=== PATIENT | female | born 1945 | race Caucasian/White ===

== ENCOUNTER 2017-10-31 23:45 | Emergency (ER) | payer MEDICARE, OTHER ==
[~2017-10-31] VITALS: Ht 152.4 cm; Wt 61.9 kg
[~2017-10-31 23:45] MED LIST: ADVAI100I PO; ARTH650T6 PO; COZA50TA PO; EPIP0.3I IM; FEXO180 PO; JINT1TAB PO; MUCI600T PO; NEXI40CA PO; OXAP600 PO; PRED50TA PO; RANI150 PO; SERT25TA83 PO; VAGI10TA VA
[2017-10-31] MEDS ORDERED: IOHEXOL 350 MG/ML 10 ML VIAL (for RAD DIAG) IVCONTRAST ONE (23:46)
[2017-10-31 23:58] VITALS: BP 165/89; PULSE 75; RESP 16; TEMP 97.7; O2SAT 100
[2017-11-01] VITALS (8 sets, daily range): BP systolic 168–208; BP diastolic 69–107; PULSE 66–99; RESP 18; O2SAT 98–99
--- NOTE | 2017-11-01 00:11 | PD ---
HPI Chief Complaint: GI Complaint Time Seen by Provider: 00:11 Travel History International Travel<30 days: No Contact w/Intl Traveler<30days: No Traveled to known affect area: No History of Present Illness HPI 71-year-old female came to the emergency room with history of nausea, vomiting and upper abdominal discomfort since 8:30 PM. Patient says that she had her lower right premolar pulled this morning and was discharged home on tramadol. She took 2 doses of tramadol which she has taken for the first time. After that the vomiting started. She says she must have vomited 6 times which have been nonbloody and nonbilious. She continues to be nauseous and says the nausea comes in waves. She was feeling fine prior to starting the medications. No history of diarrhea. No known sick contacts. Vital signs were stable. The epigastric pain radiates to the left and the right upper quadrant. No aggravating or relieving factors identified. PFSH Past Medical History Narrative Medical List of her past medical, surgical, social and family history is reviewed from the nursing note. Asthma: Yes Depression: Yes Cardiovascular Problems: Yes (Mitral Regurg) GERD: Yes Hypertension: Yes ?: Not Social History Alcohol Use: No Tobacco Use: No Substance Use: No Allergies-Medications (Allergen,Severity, Reaction): Coded Allergies: bee venom protein (honey bee) (Verified Allergy, Intermediate, LOCALIZED SWELLING, 10/31/17) codeine (Verified Adverse Reaction, Intermediate, N/V, 10/31/17) Comments List of her allergies reviewed from the nursing note. Reported Meds & Prescriptions Reported Meds & Active Scripts Active Reported Nasonex Nasal [place] (Mometasone Furoate) 50 Mcg/Act Naspr 2 [place] EACH NARE DAILY PRN Sertraline (Sertraline HCl) 25 Mg Tab 25 Mg PO DAILY Nexium (Esomeprazole DR) 40 Mg Capdr 40 Mg PO Cozaar (Losartan Potassium) 50 Mg Tab 50 Mg PO DAILY Advair Diskus Inh (Fluticasone-Salmeterol Inh) 100-50 Mcg/Blist Aer 1 Puff INH BID PRN Rinse mouth after use. Daypro (Oxaprozin) 600 Mg Tab 600 Mg PO SA-MARTELL Mucinex DM (Dextromethorphan-Guaifenesin) 30-600 Mg Tab 1 Tab PO BID PRN Jinteli 1/5 (Norethindrone-Ethinyl Estradiol) 1-5 Mg-Mcg Tab 1 Tab PO -- Narrative Medication List of her home medications reviewed from the nursing note. Review of Systems Except as stated in HPI: all other systems reviewed are Neg Gastrointestinal: Positive: Nausea, Vomiting, Abdominal Pain Physical Exam Narrative GENERAL: Awake, alert, moderate to SKIN: Focused skin assessment warm/dry. HEAD: Atraumatic. Normocephalic. EYES: Pupils equal and round. No scleral icterus. No injection or drainage. ENT: No nasal bleeding or discharge. Mucous membranes pink and moist. NECK: Trachea midline. No JVD. CARDIOVASCULAR: Regular rate and rhythm. No murmur appreciated. RESPIRATORY: No accessory muscle use. Clear to auscultation. Breath sounds equal bilaterally. GASTROINTESTINAL: Abdomen soft, tenderness in the epigastric region on palpation , nondistended. Hepatic and splenic margins not palpable. MUSCULOSKELETAL: No obvious deformities. No clubbing. No cyanosis. No edema. NEUROLOGICAL: Awake and alert. No obvious cranial nerve deficits. Motor grossly within normal limits. Normal speech. PSYCHIATRIC: Appropriate mood and affect; insight and judgment normal. Data Data Last Documented VS Vital Signs Date Time Temp Pulse Resp B/P (MAP) Pulse Ox O2 Delivery O2 Flow Rate FiO2 10/31/17 23:58 97.7 75 16 165/89 (114) 100 Orders Orders Complete Blood Count With Diff (11/01/17 00:14) Comprehensive Metabolic Panel (11/01/17 00:14) Lipase (11/01/17 00:14) Iv Access Insert/Monitor (11/01/17 00:14) Ecg Monitoring (11/01/17 00:14) Oximetry (11/01/17 00:14) Sodium Chlor 0.9% 1000 Ml Inj (Ns 1000 M (11/01/17 00:14) Sodium Chloride 0.9% Flush (Ns Flush) (11/01/17 00:15) Electrocardiogram (11/01/17 00:14) Metoclopramide Inj (Reglan Inj) (11/01/17 00:15) Pantoprazole Inj (Protonix Inj) (11/01/17 00:15) Labs Laboratory Tests Test 11/01/17 00:35 White Blood Count 8.3 TH/MM3 Red Blood Count 4.25 MIL/MM3 Hemoglobin 13.4 GM/DL Hematocrit 40.6 % Mean Corpuscular Volume 95.5 FL Mean Corpuscular Hemoglobin 31.6 PG Mean Corpuscular Hemoglobin Concent 33.1 % Red Cell Distribution Width 12.2 % Platelet Count 369 TH/MM3 Mean Platelet Volume 7.3 FL Neutrophils (%) (Auto) 80.3 % Lymphocytes (%) (Auto) 13.5 % Monocytes (%) (Auto) 5.0 % Eosinophils (%) (Auto) 0.9 % Basophils (%) (Auto) 0.3 % Neutrophils # (Auto) 6.7 TH/MM3 Lymphocytes # (Auto) 1.1 TH/MM3 Monocytes # (Auto) 0.4 TH/MM3 Eosinophils # (Auto) 0.1 TH/MM3 Basophils # (Auto) 0.0 TH/MM3 CBC Comment DIFF FINAL Differential Comment MDM Medical Decision Making Medical Screen Exam Complete: Yes Emergency Medical Condition: Yes Medical Record Reviewed: Yes Interpretation(s) Twelve-lead EKG was reviewed by me. Normal sinus rhythm, normal axis, nonspecific ST-T wave changes. Heart rate of 69 bpm. Differential Diagnosis Acute gastritis, acute pancreatitis, ACS Narrative Course 12:21 AM awaiting for blood test results. I have ordered for IV Reglan, IV Protonix and IV fluid bolus. 12:55 AM awaiting for the blood test result. Case has been signed over to the next ER physician. Procedures EKG Prior to Arrival: Delicia Spring MD November 01, 2017 00:11
[2017-11-01] MEDS ORDERED: SODIUM CHLOR 0.9% 1000 ML INJ 1,000 ML IV SCH (00:14)
[2017-11-01] MEDS ORDERED: METOCLOPRAMIDE HCL 10 MG/2 ML VIAL IV PUSH ONE (00:15)
[2017-11-01] MEDS ORDERED: SODIUM CHLORIDE 0.9% FLUSH 10 ML FLUSH IV FLUSH PRN (00:15)
[2017-11-01] MEDS ORDERED: PANTOPRAZOLE SODIUM 40 MG VIAL IV PUSH ONE (00:15)
[2017-11-01] MEDS ORDERED: MOME17I EACH NARE (00:28)
[2017-11-01] MEDS ORDERED: DAYP600T PO (00:28)
[2017-11-01] MEDS ORDERED: SERT25TA83 PO (00:28)
[2017-11-01] MEDS ORDERED: HUMIBIDDM PO (00:28)
[2017-11-01] MEDS ORDERED: COZA50TA PO (00:28)
[2017-11-01] MEDS ORDERED: NEXI40CA PO (00:28)
[2017-11-01] MEDS ORDERED: ADVA100A INH (00:28)
[2017-11-01] MEDS ORDERED: JINT1TAB PO (00:28)
[2017-11-01 00:54] LABS: AUTOMATED NEUTROPHIL # 6.7 TH/MM3 (1.8-7.7); BASOPHIL % 0.3 % (0.0-2.0); EOSINOPHIL # 0.1 TH/MM3 (0-0.4); EOSINOPHIL % 0.9 % (0.0-4.0); HEMATOCRIT 40.6 % (35.0-46.0); HEMOGLOBIN 13.4 GM/DL (11.6-15.3); LYMPH % 13.5 % (9.0-44.0); LYMPHOCYTE # 1.1 TH/MM3 (1.0-4.8); MEAN CELL VOLUME 95.5 FL (80.0-100.0); MEAN CORPUSCULAR HEMOGLOBIN 31.6 PG (27.0-34.0); MEAN CORPUSCULAR HGB CONC 33.1 % (32.0-36.0); MEAN PLATELET VOLUME 7.3 FL (7.0-11.0); MONOCYTE # 0.4 TH/MM3 (0-0.9); NEUT % 80.3 % (16.0-70.0); PLATELET COUNT 369 TH/MM3 (150-450); RED BLOOD COUNT 4.25 MIL/MM3 (4.00-5.30); RED CELL DISTRIBUTION WIDTH 12.2 % (11.6-17.2); WHITE BLOOD COUNT 8.3 TH/MM3 (4.0-11.0)
[2017-11-01 01:03] LABS: CHLORIDE 97 MEQ/L (98-107); SODIUM (NA) 132 MEQ/L (136-145)
[2017-11-01 01:06] LABS: CALCIUM 9.6 MG/DL (8.5-10.1)
[2017-11-01 01:07] LABS: ALBUMIN 4.5 GM/DL (3.4-5.0); BICARBONATE 28.1 MEQ/L (21.0-32.0); BLOOD UREA NITROGEN 12 MG/DL (7-18); GLUCOSE,RANDOM 124 MG/DL (74-106)
[2017-11-01 01:09] LABS: ALT (GPT) 28 U/L (10-53); AST (GOT) 15 U/L (15-37)
[2017-11-01 01:10] LABS: CREATININE 0.67 MG/DL (0.50-1.00); GLOMERULAR FILTRATION RATE 87 ML/MIN (>89)
[2017-11-01 01:11] LABS: TOTAL PROTEIN 8.1 GM/DL (6.4-8.2)
[2017-11-01 01:12] LABS: ALKALINE PHOSPHATASE 75 U/L (45-117)
[2017-11-01] MEDS ORDERED: VAGI10TA VAGINAL (01:16)
[2017-11-01] MEDS ORDERED: MULT-177 PO (01:16)
[2017-11-01] MEDS ORDERED: FEXO15TA PO (01:16)
[2017-11-01] MEDS ORDERED: EXCEDRIN PM PO (01:16)
[2017-11-01] MEDS ORDERED: ESSENTIAL ENZYMES PO (01:16)
--- NOTE | 2017-11-01 01:48 | PD ---
Physical Exam Date Seen by Provider: November 01, 2017 Data Data Last Documented VS Vital Signs Date Time Temp Pulse Resp B/P (MAP) Pulse Ox O2 Delivery O2 Flow Rate FiO2 11/01/17 01:25 66 18 200/76 (117) 98 Room Air 10/31/17 23:58 97.7 Orders Orders Complete Blood Count With Diff (11/01/17 00:14) Comprehensive Metabolic Panel (11/01/17 00:14) Lipase (11/01/17 00:14) Iv Access Insert/Monitor (11/01/17 00:14) Ecg Monitoring (11/01/17 00:14) Oximetry (11/01/17 00:14) Sodium Chlor 0.9% 1000 Ml Inj (Ns 1000 M (11/01/17 00:14) Sodium Chloride 0.9% Flush (Ns Flush) (11/01/17 00:15) Electrocardiogram (11/01/17 00:14) Metoclopramide Inj (Reglan Inj) (11/01/17 00:15) Pantoprazole Inj (Protonix Inj) (11/01/17 00:15) Ed Discharge Order (11/01/17 01:53) Labs Laboratory Tests Test 11/01/17 00:35 White Blood Count 8.3 TH/MM3 Red Blood Count 4.25 MIL/MM3 Hemoglobin 13.4 GM/DL Hematocrit 40.6 % Mean Corpuscular Volume 95.5 FL Mean Corpuscular Hemoglobin 31.6 PG Mean Corpuscular Hemoglobin Concent 33.1 % Red Cell Distribution Width 12.2 % Platelet Count 369 TH/MM3 Mean Platelet Volume 7.3 FL Neutrophils (%) (Auto) 80.3 % Lymphocytes (%) (Auto) 13.5 % Monocytes (%) (Auto) 5.0 % Eosinophils (%) (Auto) 0.9 % Basophils (%) (Auto) 0.3 % Neutrophils # (Auto) 6.7 TH/MM3 Lymphocytes # (Auto) 1.1 TH/MM3 Monocytes # (Auto) 0.4 TH/MM3 Eosinophils # (Auto) 0.1 TH/MM3 Basophils # (Auto) 0.0 TH/MM3 CBC Comment DIFF FINAL Differential Comment Blood Urea Nitrogen 12 MG/DL Creatinine 0.67 MG/DL Random Glucose 124 MG/DL Total Protein 8.1 GM/DL Albumin 4.5 GM/DL Calcium Level 9.6 MG/DL Alkaline Phosphatase 75 U/L Aspartate Amino Transf (AST/SGOT) 15 U/L Alanine Aminotransferase (ALT/SGPT) 28 U/L Total Bilirubin 1.0 MG/DL Sodium Level 132 MEQ/L Potassium Level 3.7 MEQ/L Chloride Level 97 MEQ/L Carbon Dioxide Level 28.1 MEQ/L Anion Gap 7 MEQ/L Estimat Glomerular Filtration Rate 87 ML/MIN Lipase 427 U/L MDM Medical Record Reviewed: Yes Supervised Visit with ENDY: No Interpretation(s) Vital Signs Date Time Temp Pulse Resp B/P (MAP) Pulse Ox O2 Delivery O2 Flow Rate FiO2 11/01/17 01:25 66 18 200/76 (117) 98 Room Air 11/01/17 00:55 68 18 204/71 (115) 99 Room Air 11/01/17 00:35 18 99 Room Air 10/31/17 23:58 97.7 75 16 165/89 (114) 100 Laboratory Tests Test 11/01/17 00:35 White Blood Count 8.3 TH/MM3 (4.0-11.0) Red Blood Count 4.25 MIL/MM3 (4.00-5.30) Hemoglobin 13.4 GM/DL (11.6-15.3) Hematocrit 40.6 % (35.0-46.0) Mean Corpuscular Volume 95.5 FL (80.0-100.0) Mean Corpuscular Hemoglobin 31.6 PG (27.0-34.0) Mean Corpuscular Hemoglobin Concent 33.1 % (32.0-36.0) Red Cell Distribution Width 12.2 % (11.6-17.2) Platelet Count 369 TH/MM3 (150-450) Mean Platelet Volume 7.3 FL (7.0-11.0) Neutrophils (%) (Auto) 80.3 % (16.0-70.0) Lymphocytes (%) (Auto) 13.5 % (9.0-44.0) Monocytes (%) (Auto) 5.0 % (0.0-8.0) Eosinophils (%) (Auto) 0.9 % (0.0-4.0) Basophils (%) (Auto) 0.3 % (0.0-2.0) Neutrophils # (Auto) 6.7 TH/MM3 (1.8-7.7) Lymphocytes # (Auto) 1.1 TH/MM3 (1.0-4.8) Monocytes # (Auto) 0.4 TH/MM3 (0-0.9) Eosinophils # (Auto) 0.1 TH/MM3 (0-0.4) Basophils # (Auto) 0.0 TH/MM3 (0-0.2) CBC Comment DIFF FINAL Differential Comment Blood Urea Nitrogen 12 MG/DL (7-18) Creatinine 0.67 MG/DL (0.50-1.00) Random Glucose 124 MG/DL (74-106) Total Protein 8.1 GM/DL (6.4-8.2) Albumin 4.5 GM/DL (3.4-5.0) Calcium Level 9.6 MG/DL (8.5-10.1) Alkaline Phosphatase 75 U/L (45-117) Aspartate Amino Transf (AST/SGOT) 15 U/L (15-37) Alanine Aminotransferase (ALT/SGPT) 28 U/L (10-53) Total Bilirubin 1.0 MG/DL (0.2-1.0) Sodium Level 132 MEQ/L (136-145) Potassium Level 3.7 MEQ/L (3.5-5.1) Chloride Level 97 MEQ/L (98-107) Carbon Dioxide Level 28.1 MEQ/L (21.0-32.0) Anion Gap 7 MEQ/L (5-15) Estimat Glomerular Filtration Rate 87 ML/MIN (>89) Lipase 427 U/L (73-393) Differential Diagnosis Medication reaction, gastritis, gastroenteritis, pancreatitis, cholecystitis Narrative Course Patient is a 71-year-old female who presents the emergency room with complaints of nausea, vomiting and upper abdominal pain which began around 8:30 PM tonight after taking 2 doses of tramadol. Patient reports that she had some teeth pulled this morning and was discharged home with tramadol for pain. Patient has never had tramadol in the past, reports that after she took this medication , she began to feel nauseous and vomited multiple times. Patient reports that prior to taking the medication, she felt fine. Patient with no fever or chills , patient with no other complaints at this time. Patient received IV fluids as well as IV Zofran as well as IV Protonix while in the emergency room. Lab work was ordered. CBC & BMP Diagram 11/01/17 00:35 Total Protein 8.1, Albumin 4.5, Calcium Level 9.6, Alkaline Phosphatase 75, Aspartate Amino Transf (AST/SGOT) 15, Alanine Aminotransferase (ALT/SGPT) 28, Total Bilirubin 1.0 Lab work reviewed, patient with a lipase of 427, patient was reevaluated and has resolution of pain. Abdomen is currently soft, nontender, nondistended, no peritoneal signs, patient with no history of pancreatitis in the past. Patient is aware of the elevated lipase, she will have this monitored further by her primary care doctor. Signs and symptoms of when to return to the emergency room was reviewed patient. Patient was able to tolerate a cup of water prior to discharge, patient reports that she is feeling better and requests to be discharged home. Patient will return to the emergency room as needed, she was instructed to stop taking tramadol. Diagnosis Primary Impression: Medication reaction Qualified Codes: T88.7XXA - Unspecified adverse effect of drug or medicament, initial encounter Additional Impressions: Nausea & vomiting Qualified Codes: R11.2 - Nausea with vomiting, unspecified Elevated lipase Patient Instructions: General Instructions Additional Instruction: Please provide patient with a copy of their lab work and studies at discharge* * Please follow up with your primary care doctor in 2-3 days Return to the ER if symptoms worsen or progress Return to the ER as needed Please stop taking tramadol Disposition: 01 DISCHARGE HOME Condition: Stable Catrina Rice DO November 01, 2017 01:48
[2017-11-01] MEDS ORDERED: ZOFR4TAB PO (02:12)
[2017-11-01] MEDS ORDERED: LOSARTAN 50 MG TAB PO ONE (02:15)
[2017-11-01] MEDS ORDERED: ONDANSETRON ODT 4 MG TAB PO ONE (02:15)
[2017-11-01] MEDS ORDERED: KETOROLAC TROMETHAMINE 30 MG/ML (IVP) VIAL IV PUSH ONE (03:15)
--- NOTE | 2017-11-01 03:51 | RADRPT ---
EXAM DATE/TIME: 11/01/2017 02:46 [facility] COMPARISON: No previous studies available for comparison. INDICATIONS : Patient complains of upper abdomen pain with nausea and vomiting. IV CONTRAST: 95 cc Omnipaque 350 (iohexol) IV ORAL CONTRAST: No oral contrast ingested. RADIATION DOSE: 6.78 CTDIvol (mGy) MEDICAL HISTORY : Cardiovascular disease. Hypertension. SURGICAL HISTORY : None. ENCOUNTER: Initial ACUITY: 1 day PAIN SCALE: 3/10 LOCATION: upper quadrant abdomen TECHNIQUE: Volumetric scanning of the abdomen and pelvis was performed. Using automated exposure control and ad justment of the mA and/or kV according to patient size, radiation dose was kept as low as reasonably achievable to obtain optimal diagnostic quality images. DICOM format image data is available electro nically for review and comparison. FINDINGS: LOWER LUNGS: The visualized lower lungs are clear. LIVER: Homogeneous density without lesion. There is no dilation of the biliary tree. No calcified gallston es. SPLEEN: Normal size without lesion. PANCREAS: Within normal limits. KIDNEYS: Normal in size and shape. There is no mass, stone or hydronephrosis. ADRENAL GLANDS: Within normal limits. VASCULAR: There is no aortic aneurysm. BOWEL/MESENTERY: The stomach, small bowel, and colon demonstrate no acute abnormality. There is no free intraperitone al air or fluid. ABDOMINAL WALL: Within normal limits. RETROPERITONEUM: There is no lymphadenopathy. BLADDER: No wall thickening or mass. REPRODUCTIVE: Within normal limits. INGUINAL: There is no lymphadenopathy or hernia. MUSCULOSKELETAL: Within normal limits for patient age. CONCLUSION: No acute disease. Jin Ruby Jr., MD on November 01, 2017 at 3:48 Board Certified Radiologist. This report was verified electronically.
--- NOTE | 2017-11-01 12:18 | EKG ---
Date Performed: 11/01/2017 Time Performed: 00:30:19 PTAGE: 71 years EKG: Sinus rhythm NORMAL ECG NO PREVIOUS TRACING DOCTOR: Marek James Interpretating Date/Time 11/01/2017 12:15:46
== END 2017-11-01 04:05 | disposition home or self-care (01) ==
LOC: PHEFT 23:45
DX: R11.2 Nausea with vomiting, unspecified (principal); R10.10 Upper abdominal pain, unspecified; T40.4X5A Adverse effect of other synthetic narcotics, initial encounter; R74.8 Abnormal levels of other serum enzymes; F32.9 Major depressive disorder, single episode, unspecified; J45.909 Unspecified asthma, uncomplicated; K21.9 Gastro-esophageal reflux disease without esophagitis; I10 Essential (primary) hypertension
CPT/HCPCS: 74177; 80053; 83690; 85025; 93005; 96361; 96374; 96375; 99285; C9113; J2765; J7030; Q9967